=== PATIENT | male | born 1970 | race Caucasian/White ===

== ENCOUNTER 2022-07-12 07:02 | Day surgery (SDC) | payer OTHER ==
[2022-07-12] VITALS (273 sets, daily range): BP systolic 109–229; BP diastolic 73–201
[~2022-07-12] VITALS: Ht 177.8 cm; Wt 76.0 kg
--- NOTE | 2022-07-12 07:02 | NUR ---
PT ARRIVES AMBULATORY WITH [facility] IN NO ACUTE DISTRESS, PT WITH HIGH BP BUT STATES "HOSPITALS MAKE ME NERVOUS". pT ALSO STATES WAS STARTED ON A NEW BP MED ABOUT TWO WEEKS AGO FROM THE [place] THAT "IS A WATER PILL".
[2022-07-12 07:57] LABS: BASO% 0.3 % (0-3); EOS% 2.1 % (0-8); HEMATOCRIT 42.6 % (39.0-50.0); HEMOGLOBIN 14.1 g/dl (14.0-18.0); IMMATURE GRANULOCYTES 0.1 % (0.0-5.0); LYMPH% 17.1 % (15-41); MEAN CELL VOLUME 96.6 fL CALC (80.0-100.0); MEAN CORPUSCULAR HGB CONC 33.1 g/dL CAL (32.0-36.0); NEUT# 6.14 thou/uL (1.82-7.42); NEUT% 71.4 % (42-76); RED BLOOD COUNT 4.41 mill/uL (4.70-6.10); RED CELL DISTRI WIDTH 13.4 % (11.5-15.5)
[2022-07-12 08:08] LABS: ALBUMIN 3.9 g/dL (3.2-5.0); ALKALINE PHOSPHATASE 56 u/l (38-126); ANION GAP 11 (6-22 (CALC)); BILIRUBIN, TOTAL 0.5 mg/dL (0.2-1.3); BUN 18 mg/dL (9-20); BUN/CREATININE RATIO 20 (12-20 (CALC)); CARBON DIOXIDE 26 mmol/l (22-30); CHLORIDE 106 mmol/l (95-108); CREATININE 0.9 mg/dL (0.7-1.3); GFR FOR AFR.AMER. > 60 ML/MIN (>=60 (CALC)); GFR OTHER RACES > 60 ML/MIN (>=60 (CALC)); SGOT/AST 22 u/l (17-59); SODIUM 139 mmol/l (137-146); TOTAL PROTEIN 6.9 g/dL (6.3-8.2)
--- NOTE | 2022-07-12 12:20 | NUR ---
Induction Note Patient to [facility] procedure room. Time out performed at 1220. Patient placed on monitors, Marc hugger, bilateral wrist restraints applied for ET tube protection. Versed 5mg given IV push at 1220 Tourniquet applied to lt arm Lidocaine 100mg given [id number] IV push followed by Rocoronium 10mg at 1221 IV push and held for 90 seconds. Propofol bolus of 150mg given at 1223 IV push. Succinylcholine 80mg given IV push at 1224. Smooth intubation with 7.5 ETT. Positive CO2. Positive Auscultation for air exchange. Patient placed on ventilator for spontaneous ventilation. Placed on Propofol IV drip at 1225. OG inserted. Positive air on auscultation. Positive gastric content. Stomach washed at this time. 1245 Naltrexone 50mg given via OG tube with Clonidine 0.3 mg given via OG Tube. OG clamped for 45 minutes. Will monitor patient for symptoms of withdrawal and adjust propfol accordingly.
--- NOTE | 2022-07-12 13:05 | NUR ---
OG open note OG open at this time due to vomitus coming up og tube. oral suction clear, sterile suction via ET clear Gastric content draining into drainage bag. OG to drain for 45 minutes. Propofol will be titrated down based on patient.
--- NOTE | 2022-07-12 14:10 | NUR ---
OG close note Stomach washed at this time. Naltrexone 50 mg with Clonidine 0.2 mg via OG tube. OG will be clamped for 45 minutes.
--- NOTE | 2022-07-12 14:55 | NUR ---
OG open note OG open at this time. Gastric content draining into drainage bag. OG to drain for 45 minutes. Propofol will be titrated down based on patient.
[2022-07-12] MEDS ORDERED: KLONOPIN2 MG PO (15:34)
[2022-07-12] MEDS ORDERED: CLONIDINE0.1 MG PO (15:34)
[2022-07-12] MEDS ORDERED: NALTREXONE50 MG PO (15:34)
--- NOTE | 2022-07-12 16:22 | NUR ---
OG close note Stomach washed at this time. Naltrexone 50 mg via OG tube. OG will be clamped for 45 minutes.
--- NOTE | 2022-07-12 18:40 | NUR ---
MEDS GIVEN FOR HTN ORDERED PER DR Castaneda
--- NOTE | 2022-07-12 19:00 | NUR ---
Extubation note Closing medications given Benadryl 50mg IV push, Decadron 10mg IV push,Magnesium 4 grams IV, Zofran 8mg IV push, Octreotide 100mcg SC. Stomach washed out prior to extubation. Suctioned gastric content. OG removed. Patient extubated. Propofol Discontinued. Wrist restraints removed. Marc hugger Removed. See [facility] Moderate sedate recovery record for further notes and assessment.
--- NOTE | 2022-07-12 21:15 | NUR ---
BP 168/86, RR 24, O2 SAT 96% PT MOVING ABOUT IN BED FREELY. TRANSPORTED TO [place] VIA STRETCHER IN NO ACUTE DISTRESS. VSS.
--- NOTE | 2022-07-12 21:26 | NUR ---
RECEIVED PATIENT TO ROOM 288 VIA BED. SBAR RECEIVED FROM HUGH VERONICA. PATIENT RESTING QUIETLY. BLOOD PRESSURE ELEVATED 174/77, SATURATION 96% ON 2.5L/NC. MOIST COUGN NOTED, NON-PRODUCTIVE.
[2022-07-13 03:34] VITALS: BP 165/87
--- NOTE | 2022-07-13 03:53 | NUR ---
RESTING COMFORTABLY EYES CLOSED. CLONIDINE AND KLONIPINE HELD, HR 40'S. NO DISTRESS NOTED AT THIS TIME. CALL LIGHT WITHIN REACH. ALARM ACTIVE.
[2022-07-13 03:55] VITALS: BP 165/87
[2022-07-13 05:53] LABS: ALBUMIN 4.2 g/dL (3.2-5.0); ALKALINE PHOSPHATASE 53 u/l (38-126); ANION GAP 14 (6-22 (CALC)); BILIRUBIN, TOTAL 0.7 mg/dL (0.2-1.3); BUN 15 mg/dL (9-20); BUN/CREATININE RATIO 19 (12-20 (CALC)); CARBON DIOXIDE 24 mmol/l (22-30); CHLORIDE 104 mmol/l (95-108); CREATININE 0.8 mg/dL (0.7-1.3); GFR FOR AFR.AMER. > 60 ML/MIN (>=60 (CALC)); GFR OTHER RACES > 60 ML/MIN (>=60 (CALC)); MAGNESIUM 2.1 mg/dL (1.6-2.3); POTASSIUM 4.4 mmol/l (3.5-5.1); SGOT/AST 25 u/l (17-59); SODIUM 138 mmol/l (137-146); TOTAL PROTEIN 6.9 g/dL (6.3-8.2)
--- NOTE | 2022-07-13 07:17 | NUR ---
Receive report from Mine REESE. Patient in no acute distress. Resting in bed with eye close. 2L NC placed. VSS stable at this time. Patient resting comfortably. Safety and fall precautions in place. Call light and sitter at bedside.
[2022-07-13 07:34] VITALS: BP 162/94
[2022-07-13 08:00] VITALS: BP 162/94
[2022-07-13 08:18] VITALS: BP 162/94
--- NOTE | 2022-07-13 11:00 | NUR ---
Dr. Walker telephoned and updated with overnight events, PRN medications, morning labs, vital signs, ANR floating operatorrn assessment and current progress on discharge requirements. Expected discharge today. Discharge plan in progress.
--- NOTE | 2022-07-13 11:14 | NUR ---
Patient's support person (SP) telephoned with overnight update and to begin discharge planning. All questions answered satisfactorily, no concerns presented. SP agreeable to discharge plan.
--- NOTE | 2022-07-13 16:23 | NUR ---
Patient discharged in stable condition. Reports no nausea, tolerated PO intake, ambulatory with stable gait. IV's removed. Patient remained alert and conversive during discharge teaching. Support person states undestanding of discharge instructions and offers no further questions. Medication education given at length. Patient and SP stated understanding.
== END 2022-07-13 16:17 | disposition home or self-care (01) | DRG 897 ==
LOC: ANR 07:02 → MS2 07:02 → ANR 09:00 → MS2 18:46 → ANR 07-13 16:17
PROVIDERS: ATTEND Anesthesiology
DX: F11.20 Opioid dependence, uncomplicated (principal)
CPT/HCPCS: J0131; J2354; J3475